=== PATIENT | male | born 1980 | race Caucasian/White ===

== ENCOUNTER 2017-11-02 18:32 | Emergency (ER) | payer SELFPAY | END 2017-11-02 19:39 | disposition left against medical advice (07) | LOC: ER 18:32 | DX: Z53.21 Procedure and treatment not carried out due to patient leaving prior to being seen by health care provider (principal) ==

== ENCOUNTER 2018-10-07 11:50 | Observation (INO) | payer BC ==
[2018-10-07] MEDS ORDERED: ASPIRIN 81 MG TABLET, CHEWABLE PO ONE (11:52)
--- NOTE | 2018-10-07 12:08 | ER Document Report ---
ED General - General Stated Complaint: CHEST PAIN Time Seen by Provider: 10/07/18 11:54 Notes: 37-year-old male presents to the ER complaining some left-sided chest disc omfort. The patient stated it started this morning at breakfast. He described it as a sharp squeezing. It did radiate to his left arm. He denies shortness of breath. Denies diaphoresis denies nausea vomiting. He denies any cough sore throat. Denies black bloody or tarry stool. Rates it as 1/10. States is more uncomfortable. He denies any falls or trauma. Denies any cough. Denies hemopt ysis gland swelling or night sweats. Denies calf pain or swelling. TRAVEL OUTSIDE OF THE [place] IN LAST 30 DAYS: No - Related Data Allergies/Adverse Reactions: No Known Allergies Allergy (Verified 10/07/18 13:24) Past Medical History - Social History Smoking Status: Unknown if Ever Smoked Family History: Other Review of Systems - Review of Systems Constitutional: denies: Chills, Fever Cardiovascular: Chest pain. denies: Edema Respiratory: denies: Cough, Short of breath Neurological/Psychological: denies: Headaches -: Yes All other systems reviewed and negative Physical Exam - Vital signs Vitals: Resp Pulse Ox 18 95 10/07/18 12:11 10/07/18 12:11 - Notes Notes: GENERAL_APPEARANCE: well_nourished, alert, cooperative VITALS: reviewed, see vital signs table. HEAD: no_swelling\tenderness on the head. EYES: PERRL, EOMI, conjunctiva_clear. NOSE: no_nasal_discharge. MOUTH: (-)decreased moisture. THROAT: no_throat_inflammation, no_airway_obstruction. no_lymphadenopathy NECK: supple, no_neck_tenderness, (-)thyromegaly. BACK: no_back_tenderness. CHEST_WALL: no_chest_tenderness. Unable to reproduce pain no crepitus or subcutaneous emphysema noted LUNGS: no_wheezing, no_rales, no_rhonchi, (-)accessory muscle use, good air exchange bilateral. HEART: normal_rate, normal_rhythm, normal_S1, normal_S2, (-)S3, (-)S4, no_murmur, no_rub. ABDOMEN: normal_BS, soft, no_abd_tenderness, (-)guarding, (-)rebound, no_organomegaly, no_abd_masses. EXTREMITIES: good pulses in all_extremities, no_swelling\tenderness in the extremities, no_edema. SKIN: warm, dry, good_color, no_rash. MENTAL_STATUS: speech_clear, oriented_X_3, normal_affect, responds_appropriately to questions. Course - Re-evaluation Re-evalutation: 10/07/18 12:07 The patient presents with chest discomfort. He does have history of hypertension high cholesterol and diabetes. We will do the full workup. 10/07/18 15:13 The patient does have T wave inversion inferior laterally. I have no old EKG to compare to. Patient had a stress test 6 years ago and vaguely remembers there is something abnormal with his EKG but really cannot intelligently tell me. This was out of the area so I have no way to access any records. The patient otherwise is doing well his first troponin is negative. The patient does have hypertension diabetes and high cholesterol he does have a moderate to high gilbert picion story this puts his heart score at 5. Because of this I think it is appropriate to bring him in and rule them out. I spoke with hospice service who is in agreement the patient has had aspirin will place an inch of Nitropaste. I spoke with the patient and he is agreeable. 10/07/18 15:16 D-dimer is negative my suspicion is low for PE. - Vital Signs Vital signs: Temp Pulse Resp BP Pulse Ox 13 143/82 H 99 10/07/18 13:01 10/07/18 13:00 10/07/18 13:25 - Laboratory Result Diagrams: 10/07/18 12:17 10/07/18 12:17 Laboratory results interpreted by me: 10/07/18 12:17 Glucose 288 H Creatine Kinase 49 L - Diagnostic Test Radiology reviewed: Reports reviewed Radiology results interpreted by me: 10/07/18 15:16 Chest X-Ray 10/07/18 11:53 IMPRESSION: NO SIGNIFICANT RADIOGRAPHIC FINDING IN THE CHEST. - EKG Interpretation by Me Rate: Normal Rhythm: NSR When compared to previous EKG there are: Previous EKG unavailable Additional EKG results interpreted by me: 10/07/18 12:09 Patient has T wave inversion inferior laterally. I have no old EKG to compare. Discharge - Discharge Clinical Impression: Chest pain Qualifiers: Chest pain type: unspecified Qualified Code(s): R07.9 - Chest pain, unspecified Condition: Good Disposition: ADMITTED OBSERVATION Admitting Provider: Hospitalist Unit Admitted: Telemetry
--- NOTE | 2018-10-07 12:25 | RADIOLOGY REPORT (SQ) ---
EXAM DESCRIPTION: CHEST SINGLE VIEW COMPLETED DATE/TIME: 10/07/2018 12:15 pm REASON FOR STUDY: BED 18 CP COMPARISON: None. NUMBER OF VIEWS: One view. TECHNIQUE: Single frontal radiographic view of the chest acquired. LIMITATIONS: None. FINDINGS: LUNGS AND PLEURA: No opacities, masses or pneumothorax. No pleural effusion. MEDIASTINUM AND HILAR STRUCTURES: No masses. Contour normal. HEART AND VASCULAR STRUCTURES: Heart normal in size. Normal vasculature. BONES: No acute findings. HARDWARE: None in the chest. OTHER: No other significant finding. IMPRESSION: NO SIGNIFICANT RADIOGRAPHIC FINDING IN THE CHEST. TECHNICAL DOCUMENTATION: JOB ID: [id number]- All Rights Reserved Reading location - IP/workstation name: [email or web address]
[2018-10-07 12:31] LABS: ABSOLUTE EOSINOPHILS # (AUTO) 0.1 10^3/uL (0.0-0.6); ABSOLUTE LYMPHOCYTES (AUTO) 1.4 10^3/uL (0.5-4.7); ABSOLUTE MONOCYTES (AUTO) 0.3 10^3/uL (0.1-1.4); ABSOLUTE NEUT (AUTO) 5.3 10^3/uL (1.7-8.2); BASOPHILS % (AUTO) 0.5 % (0-2); EOSINOPHILS % (AUTO) 1.7 % (0-6); HEMATOCRIT 42.7 % (37.9-51.0); HEMOGLOBIN 15.2 g/dL (13.5-17.0); LYMPHOCYTES % (AUTO) 19.1 % (13-45); MEAN CORPUSCULAR HEMOGLOBIN 31.9 pg (27.0-33.4); MEAN CORPUSCULAR HGB CONC 35.5 g/dL (32.0-36.0); MEAN CORPUSCULAR VOLUME 90 fl (80-97); MONOCYTES % (AUTO) 4.5 % (3-13); PLATELET COUNT 230 10^3/uL (150-450); RED BLOOD COUNT 4.75 10^6/uL (4.35-5.55); RED CELL DISTRIBUTION WIDTH 12.8 % (11.5-14.0); SEGMENTED NEUTROPHILS % (AUTO) 74.2 % (42-78); TOTAL CELLS COUNTED % (AUTO) 100 %; WHITE BLOOD COUNT 7.1 10^3/uL (4.0-10.5)
[2018-10-07 12:47] LABS: ALANINE AMINOTRANSFERASE 26 U/L (21-72); ALBUMIN 3.7 g/dL (3.5-5.0); ALKALINE PHOSPHATASE 65 U/L (38-126); ANION GAP 9 (5-19); ASPARTATE AMINO TRANSFERASE 20 U/L (17-59); BILIRUBIN,DIRECT 0.2 mg/dL (0.0-0.4); BILIRUBIN,TOTAL 0.5 mg/dL (0.2-1.3); BLOOD UREA NITROGEN 13 mg/dL (7-20); CALCIUM 9.2 mg/dL (8.4-10.2); CARBON DIOXIDE 27 mmol/L (22-30); CHLORIDE 104 mmol/L (98-107); CREATINE KINASE 49 U/L (55-170); GLUCOSE 288 mg/dL (75-110); POTASSIUM 4.6 mmol/L (3.6-5.0); SODIUM 139.8 mmol/L (137-145); TOTAL PROTEIN 6.3 g/dL (6.3-8.2)
--- NOTE | 2018-10-07 12:56 | EKG REPORT ---
SEVERITY:- ABNORMAL ECG - SINUS RHYTHM ABNORMAL T, CONSIDER ISCHEMIA, DIFFUSE LEADS : Confirmed by: Carri Aruajo 07-Oct-2018 12:55:36
[2018-10-07 12:59] LABS: CREATINE KINASE MB 0.93 ng/mL (<4.55)
[2018-10-07 13:01] LABS: TROPONIN I < 0.012 ng/mL
[2018-10-07] MEDS ORDERED: NITROGLYCERIN 2% OINTMENT 1 GM PACKET TP ONE (15:17)
--- NOTE | 2018-10-07 17:38 | PDOC H&P ---
History of Present Illness Admission Date/PCP: 10/07/18 15:39 Patient complains of: Chest pain History of Present Illness: ALEJANDRO CRUZ is a 37 year old male history of diabetes, hypertension, who presents with complaint of chest pain. This started. This morning at about 8:30 a.m. when he was eating breakfast. He thought it was indigestion, but chest pain recurred later. This was not with activity. He had some squeezing on the left chest, with radiation to left arm. He had nausea, but no vomiting. Denies diaphoresis, no palpitations. He presented to the ED was concerning for T wave inversion in the inf-lat leads. Initial troponin was negative. Patient was treated with aspirin, nitro, and referred for admission to rule out KS and further workup/management. When I saw him he was chest pain-free. Patient is a former smoker, quit about 3 years ago. He now vapes. Past Medical History Cardiac Medical History: Reports: Hypertension Endocrine Medical History: Reports: Diabetes Mellitus Type 2 Skin Medical History: Reports: Other - Gout Social History Smoking Status: Former Smoker Family History Family History: Other Family History: Significant for anti- of KS; father with diabetes, peripheral vascular disease; mother with hypertension, CAD Parental Family History Reviewed: Yes Children Family History Reviewed: Yes Sibling(s) Family History Reviewed.: Yes Medication/Allergy Home Medications: Colchicine [Colcrys 0.6 mg Tablet] 0.6 mg PO PRN PRN 10/07/18 Lisinopril [Prinivil] 20 mg PO DAILY 10/07/18 Allergies/Adverse Reactions: No Known Allergies Allergy (Verified 10/07/18 13:24) Review of Systems Review of Systems: CONSTITUTIONAL : Fever, chills -- No; unexpalined fatigue -- No EENT: Denies eye, ear, throat, or mouth pain or symptoms. Denies nasal or sinus congestion or discharge. Denies throat, tongue, or mouth swelling or difficulty swallowing. CARDIOVASCULAR: As in HPI RESPIRATORY: Denies cough, no shortness of breath, difficulty breathing. GASTROINTESTINAL: Denies abdominal pain or distention. Denies nausea, vomiting, or diarrhea. No rectal bleeding. GENITOURINARY: Urinary symptoms -- no. MUSCULOSKELETAL: No acute weakness SKIN: Denies rash, lesions or sores. HEMATOLOGIC : Denies easy bruising or bleeding. LYMPHATIC: Denies swollen, enlarged glands. NEUROLOGICAL: New weakness, headaches, slured speach - No PSYCHIATRIC: Changes anxiety or stress, depression, suicidal ideation, or homicidal ideation -- No ALL OTHER SYSTEMS REVIEWED AND NEGATIVE. Physical Exam Vital Signs: Temp Pulse Resp BP Pulse Ox 98.4 F 15 131/69 H 96 10/07/18 16:01 10/07/18 16:01 10/07/18 16:01 10/07/18 16:01 Intake & Output 10/06/18 10/07/18 10/08/18 06:59 06:59 06:59 Weight 117.027 kg GENERAL: Well-developed, well-nourished, no acute distress HEENT: Normocephalic/atraumatic NECK supple, no JVD CARDIOVASCULAR: RRR, normal S1-S2, no appreciable murmur LUNGS: CTA bilaterally ABDOMEN: Soft, NT, NL bowel sounds EXTREMITIES: No edema, clubbing, cyanosis NEUROLOGICAL: Alert, oriented x 3, strength 5/5 throughout, reflexes 2+, CN II through XII intact Results Laboratory Results: 10/07/18 12:17 10/07/18 12:17 10/07/18 10/07/18 12:17 12:17 WBC 7.1 RBC 4.75 Hgb 15.2 Hct 42.7 MCV 90 MCH 31.9 MCHC 35.5 RDW 12.8 Plt Count 230 Seg Neutrophils % 74.2 Lymphocytes % 19.1 Monocytes % 4.5 Eosinophils % 1.7 Basophils % 0.5 Absolute Neutrophils 5.3 Absolute Lymphocytes 1.4 Absolute Monocytes 0.3 Absolute Eosinophils 0.1 Absolute Basophils 0.0 Sodium 139.8 Potassium 4.6 Chloride 104 Carbon Dioxide 27 Anion Gap 9 BUN 13 Creatinine 0.92 Est GFR ( Amer) > 60 Est GFR (Non-Af Amer) > 60 Glucose 288 H Calcium 9.2 Total Bilirubin 0.5 AST 20 ALT 26 Alkaline Phosphatase 65 Total Protein 6.3 Albumin 3.7 10/07/18 10/07/18 10/07/18 12:17 12:17 16:00 Creatine Kinase 49 L CK-MB (CK-2) 0.93 Troponin I < 0.012 < 0.012 Impressions: Chest X-Ray 10/07/18 11:53 IMPRESSION: NO SIGNIFICANT RADIOGRAPHIC FINDING IN THE CHEST. Assessment & Plan - Diagnosis (5) Chest pain Qualifiers: Chest pain type: unspecified Qualified Code(s): R07.9 - Chest pain, unspecified - Plan Summary Plan Summary: Patient being admitted to 24 hours observation. Will treat with nitro, aspirin. We will also treat with O2 as needed. Will rule out KS with serial troponin x3. Stress Cardiolite in a.m. if rules out for KS.
[2018-10-07] MEDS: NITROGLYCERIN 2% OINTMENT 1 GM PACKET TP SCH ×2 (18:25→23:03)
[2018-10-07] MEDS ORDERED: ACETAMINOPHEN 325 MG TABLET PO PRN (18:37)
[2018-10-07] MEDS ORDERED: COLCHICINE 0.6 MG TABLET PO ONE (19:15)
[2018-10-07] MEDS ORDERED: SITAGLIPTIN PHOSPHATE 50 MG TABLET PO ONE (19:15)
[2018-10-07] MEDS ORDERED: DEXTROSE 40% GEL 15 GM TUBE X 2 PO PRN (19:30)
[2018-10-07] MEDS ORDERED: GLUCAGON,HUMAN RECOMB 1 MG INJ IM PRN (19:30)
[2018-10-07] MEDS ORDERED: DEXTROSE 50%-WATER SYRINGE 12.5 GM/25 ML DOSE IV PRN (19:30)
[2018-10-07] MEDS ORDERED: INSULIN LISPRO 100 UNIT/ML 3 ML VIAL SUBCUT PRN (19:30)
[2018-10-07] MEDS ORDERED: DEXTROSE 50%-WATER SYRINGE 25 GM/50 ML DOSE IV PRN (19:30)
[2018-10-07] MEDS ORDERED: DEXTROSE 40% GEL 15 GM TUBE PO PRN (19:30)
[2018-10-07] MEDS ORDERED: METFORMIN HCL 500 MG TABLET PO ONE (20:00)
[2018-10-08] MEDS: NITROGLYCERIN 2% OINTMENT 1 GM PACKET TP SCH ×4 (05:45→17:54)
[2018-10-08 06:02] LABS: HEMATOCRIT 41.3 % (37.9-51.0); HEMOGLOBIN 14.9 g/dL (13.5-17.0); MEAN CORPUSCULAR HEMOGLOBIN 32.2 pg (27.0-33.4); MEAN CORPUSCULAR HGB CONC 36.1 g/dL (32.0-36.0); MEAN CORPUSCULAR VOLUME 89 fl (80-97); PLATELET COUNT 213 10^3/uL (150-450); RED BLOOD COUNT 4.63 10^6/uL (4.35-5.55); WHITE BLOOD COUNT 7.6 10^3/uL (4.0-10.5)
[2018-10-08 06:31] LABS: ANION GAP 8 (5-19); BLOOD UREA NITROGEN 15 mg/dL (7-20); CALCIUM 9.4 mg/dL (8.4-10.2); CARBON DIOXIDE 27 mmol/L (22-30); CHLORIDE 103 mmol/L (98-107); GLUCOSE 251 mg/dL (75-110); POTASSIUM 4.1 mmol/L (3.6-5.0)
[2018-10-08] MEDS: ENOXAPARIN SODIUM INJ 40 MG/0.4 ML DISP.SYRIN SUBCUT SCH (09:53)
[2018-10-08] MEDS: ASPIRIN 81 MG TABLET, ENT COATED PO SCH (09:53)
[2018-10-08] MEDS: COLCHICINE 0.6 MG TABLET PO SCH ×2 (09:53→17:30)
[2018-10-08] MEDS: METFORMIN HCL 500 MG TABLET PO SCH ×2 (09:53→17:30)
[2018-10-08] MEDS: SITAGLIPTIN PHOSPHATE 50 MG TABLET PO SCH ×2 (09:54→17:30)
[2018-10-08] MEDS: LISINOPRIL 10 MG TABLET PO SCH (09:54)
--- NOTE | 2018-10-08 10:39 | PDOC PROGRESS REPORT ---
Subjective Progress Note for:: 10/08/18 Subjective:: No complaint, no recurrent chest pain at this time. No fever or chills, no nausea or vomiting, no palpitations. Denies shortness of breath. Admits to poor compliance to his diabetes medications, states when he takes them his blood sugar usually run in the 120s. He has been stressed working as a contractor. States he will resume adhering to this. He does not want to go on insulin at this time. Reason For Visit: CHEST PAIN Physical Exam Vital Signs: Temp Pulse Resp BP Pulse Ox 97.8 F 77 16 125/69 94 10/08/18 03:47 10/08/18 07:00 10/08/18 03:47 10/08/18 03:47 10/08/18 03:47 Intake & Output 10/07/18 10/08/18 10/09/18 06:59 06:59 06:59 Intake Total 500 Balance 500 Weight 119 kg GENERAL: Well-developed, no acute distress HEENT: Normocephalic/atraumatic NECK supple, no JVD CARDIOVASCULAR: RRR, normal S1-S2 LUNGS: CTA bilaterally ABDOMEN: Soft, NT, NL bowel sounds EXTREMITIES: No edema, clubbing, cyanosis NEUROLOGICAL: Alert, oriented x 3, nonfocal Results Laboratory Results: 10/08/18 04:38 10/08/18 04:38 10/07/18 10/07/18 10/08/18 12:17 12:17 04:38 WBC 7.1 7.6 RBC 4.75 4.63 Hgb 15.2 14.9 Hct 42.7 41.3 MCV 90 89 MCH 31.9 32.2 MCHC 35.5 36.1 H RDW 12.8 13.0 Plt Count 230 213 Seg Neutrophils % 74.2 Lymphocytes % 19.1 Monocytes % 4.5 Eosinophils % 1.7 Basophils % 0.5 Absolute Neutrophils 5.3 Absolute Lymphocytes 1.4 Absolute Monocytes 0.3 Absolute Eosinophils 0.1 Absolute Basophils 0.0 Sodium 139.8 Potassium 4.6 Chloride 104 Carbon Dioxide 27 Anion Gap 9 BUN 13 Creatinine 0.92 Est GFR ( Amer) > 60 Est GFR (Non-Af Amer) > 60 Glucose 288 H Calcium 9.2 Total Bilirubin 0.5 AST 20 ALT 26 Alkaline Phosphatase 65 Total Protein 6.3 Albumin 3.7 10/08/18 04:38 WBC RBC Hgb Hct MCV MCH MCHC RDW Plt Count Seg Neutrophils % Lymphocytes % Monocytes % Eosinophils % Basophils % Absolute Neutrophils Absolute Lymphocytes Absolute Monocytes Absolute Eosinophils Absolute Basophils Sodium 138.0 Potassium 4.1 Chloride 103 Carbon Dioxide 27 Anion Gap 8 BUN 15 Creatinine 0.86 Est GFR ( Amer) > 60 Est GFR (Non-Af Amer) > 60 Glucose 251 H Calcium 9.4 Total Bilirubin AST ALT Alkaline Phosphatase Total Protein Albumin 10/07/18 10/07/18 10/07/18 12:17 12:17 16:00 Creatine Kinase 49 L CK-MB (CK-2) 0.93 Troponin I < 0.012 < 0.012 10/08/18 06:27 Creatine Kinase CK-MB (CK-2) Troponin I < 0.012 Impressions: Chest X-Ray 10/07/18 11:53 IMPRESSION: NO SIGNIFICANT RADIOGRAPHIC FINDING IN THE CHEST. Assessment & Plan - Diagnosis (1) Chest pain Qualifiers: Chest pain type: unspecified Qualified Code(s): R07.9 - Chest pain, unspecified Is this a current diagnosis for this admission?: Yes (2) Diabetes mellitus type 2 in obese Is this a current diagnosis for this admission?: Yes (3) Hypertension Is this a current diagnosis for this admission?: Yes (4) Former light tobacco smoker Is this a current diagnosis for this admission?: Yes (5) Smokeless tobacco use Is this a current diagnosis for this admission?: Yes - Plan Summary Plan Summary: Patient medically stable. Continue to trend troponin. He is awaiting stress Cardiolite to evaluate for reversible ischemia. Continue medical management for now, including aspirin, nitro as needed. Counseled on compliance with his medications, including for diabetes. Will check hemoglobin A1c.
[2018-10-09] MEDS: NITROGLYCERIN 2% OINTMENT 1 GM PACKET TP SCH ×3 (00:38→11:22)
[2018-10-09] MEDS: METFORMIN HCL 500 MG TABLET PO SCH (11:21)
[2018-10-09] MEDS: COLCHICINE 0.6 MG TABLET PO SCH (11:21)
[2018-10-09] MEDS: SITAGLIPTIN PHOSPHATE 50 MG TABLET PO SCH (11:21)
[2018-10-09] MEDS: ASPIRIN 81 MG TABLET, ENT COATED PO SCH (11:21)
[2018-10-09] MEDS: ENOXAPARIN SODIUM INJ 40 MG/0.4 ML DISP.SYRIN SUBCUT SCH (11:22)
[2018-10-09] MEDS: LISINOPRIL 10 MG TABLET PO SCH (11:27)
[2018-10-09 13:48] VITALS: BP 143/90
--- NOTE | 2018-10-09 14:03 | PDOC DISCHARGE SUMMARY ---
General - Admit/Disc Date/PCP Admission Date/Primary Care Provider: 10/07/18 15:39 SAMEER WORRELL PA-C Discharge Date: 10/09/18 - Discharge Diagnosis (1) Chest pain Is this a current diagnosis for this admission?: Yes (2) Diabetes mellitus type 2 in obese Is this a current diagnosis for this admission?: Yes (3) Hypertension Is this a current diagnosis for this admission?: Yes (4) Former light tobacco smoker Is this a current diagnosis for this admission?: Yes (5) Smokeless tobacco use Is this a current diagnosis for this admission?: Yes - Additional Information Discharge Diet: As Tolerated, Cardiac, Diabetic Discharge Activity: Activity As Tolerated Prescriptions: Metoprolol Succinate [Toprol Xl 25 mg Tab.sr] 25 mg PO DAILY #30 tab.sr.24h Home Medications: Colchicine [Colcrys 0.6 mg Tablet] 0.6 mg PO PRN PRN 10/07/18 Lisinopril [Prinivil] 20 mg PO DAILY 10/07/18 Sitagliptin Phos/Metformin HCl [Janumet 50-1,000 mg Tablet] 1 each PO BID 10/07/18 Metoprolol Succinate [Toprol Xl 25 mg Tab.sr] 25 mg PO DAILY #30 tab.sr.24h 10/09/18 History of Present Illness History of Present Illness: Patient was admitted after presentation as in HPI below: "ALEJANDRO CRUZ is a 37 year old male history of diabetes, hypertension, who presents with complaint of chest pain. This started. This morning at about 8:30 a.m. when he was eating breakfast. He thought it was indigestion, but chest pain recurred later. This was not with activity. He had some squeezing on the left chest, with radiation to left arm. He had nausea, but no vomiting. Denies diaphoresis, no palpitations. He presented to the ED was concerning for T wave inversion in the inf-lat leads. Initial troponin was negative. Patient was treated with aspirin, nitro, and referred for admission to rule out PR and further workup/management. When I saw him he was chest pain-free. Patient is a former smoker, quit about 3 years ago. He now vapes." Hospital Course Hospital Course: Patient was admitted and managed as follows: (1) Chest pain Qualifiers: Chest pain type: unspecified Qualified Code(s): R07.9 - Chest pain, unspecified Is this a current diagnosis for this admission?: Yes Treated with ASA, nitro, oxygen as needed. He rulled out for PR with troponins x 3 He had stress cardiolyted done negative for reversible ishemia. He had hypertensive response to stress test and B-memo (Metoprolol ER 25mg daily) has been added to his medications (2) Diabetes mellitus type 2 in obese Is this a current diagnosis for this admission?: Yes Reports noncompliance to meds recently due to being busy. Hgb A1c check and it was 7. Advise compliance with meds and diet. (3) Hypertension Is this a current diagnosis for this admission?: Yes Resume patricia meds + new low dose b-memo (4) Former light tobacco smoker Is this a current diagnosis for this admission?: Yes Congratulated on quitting (5) Smokeless tobacco use Is this a current diagnosis for this admission?: Yes Counseled on quitting this as well as dangers not yet well known F/u with pcp in one week. Physical Exam Vital Signs: Temp Pulse Resp BP Pulse Ox 98.2 F 94 17 143/90 H 98 10/09/18 13:45 10/09/18 13:45 10/09/18 13:45 10/09/18 13:45 10/09/18 13:45 Intake & Output 10/08/18 10/09/18 10/10/18 06:59 06:59 06:59 Intake Total 500 892 Balance 500 892 Weight 119 kg 119 kg GENERAL: Well-developed, no acute distress HEENT: Normocephalic/atraumatic NECK supple, no JVD CARDIOVASCULAR: RRR, normal S1-S2 LUNGS: CTA bilaterally ABDOMEN: Soft, NT, NL bowel sounds EXTREMITIES: No edema, clubbing, cyanosis NEUROLOGICAL: Alert, oriented x 3, nonfocal Results Laboratory Results: 10/08/18 04:38 10/08/18 04:38 10/07/18 10/07/18 10/07/18 12:17 12:17 16:00 Creatine Kinase 49 L CK-MB (CK-2) 0.93 Troponin I < 0.012 < 0.012 10/08/18 06:27 Creatine Kinase CK-MB (CK-2) Troponin I < 0.012 Impressions: Chest X-Ray 10/07/18 11:53 IMPRESSION: NO SIGNIFICANT RADIOGRAPHIC FINDING IN THE CHEST. Qualifiers - * PATIENT BEING DISCHARGED WITH ANY OF THE FOLLOWING DIAGNOSIS: No
--- NOTE | 2018-10-09 15:08 | DRAGON STRESS TEST REPORT ---
Exercise EKG treadmill Cardiolite stress test using SPECT. Data procedure: 10/09/2018. Ordering Physician: Dr. Sue. Patient Status: Inpatient Indication:: Chest pain coronary risk factors:. Diabetes mellitus, hypertension, and family history of coronary artery disease. Significant physical findings prior to stress testing show a blood pressure of 137/89, and a heart rate of 88 beats per minute, with no ectopics. Auscultation of the heart shows normal S1 and S2. No S3 or S4 gallops. Systolic murmur in the left sternal border and apex. Lungs are clear to auscultation and percussion. Resting 12-lead EKG:. Sinus Rhythm. T wave inversion in the anterior and inferior leads. Procedure: The patient was excised on a standard Terrell protocol. . The patient walked a total of 10 minutes and 03 seconds on this protocol and reached a peak heart rate of 166 beats per minute, which is 91% of maximum predicted heart rate for age. This is at an excellent workload of 13.40 METS. The test was stopped because of achievement of target heart rate. The patient described no symptoms of chest pain/discomfort. Exercise EKG's show: No ST changes of exercise-induced myocardial ischemia. Arrhythmias seen: None. The blood pressure response was hypertensive at peak exercise the blood pressure was 212/99 millimeters of Hg. The double product was 35.1 K. Summary of findings and interpretation: 1. No chest pain or chest discomfort symptoms reproduced. 2. No EKG evidence of ischemia in the form of ST segment depression. 3. Hypertensive blood pressure response. 4. No arrhythmias seen. 5. Excellent exercise tolerance, excellent aerobic capacity. Diagnostic treadmill stress test negative for ischemia by EKG criteria. Recommendations: Correlate with nuclear Cardiolite images. Nuclear data: At rest the patient was given 13.36 millicuries of technetium 99 sestamibi, and as per protocol rest none gated SPECT images were obtained. The patient was exercised on a treadmill [see exercise physiology]. One minute prior to termination of exercise, 46.6 millicuries of technetium and there sestamibi was injected intravenously. As per protocol stress gated images were obtained. Impression: Review of images show that there is a perfusion defect involving the basal inferior wall, which is more pronounced in the resting images compared to the stress images. This area has normal motion contraction and thickening hence this is a soft tissue attenuation artifact. Rest of the segments of the myocardium had normal perfusion at rest, and normal perfusion post exercise. All segments of the myocardium had normal motion, contraction, and thickening by gated study. T. I D. ratio was[ ]. The computer read rest and stress left ventricular ejection fractions were 57 %, and 53 % respectively. Visually both the ejection fractions were normal in excess of 55%. Conclusions: 1. No clinical symptoms of exercise-induced myocardial ischemia at a peak heart rate of 166 beats per minute, patient having achieved 91 % of maximum predicted heart rate for age, at an excellent workload of 13.40 METS. 2. No EKG evidence of exercise-induced myocardial ischemia. 3. No arrhythmias seen. 4. Hypertensive blood pressure response. 5.No scintigraphic evidence of exercise-induced myocardial ischemia. 6.No scintigraphic evidence of myocardial infarction/scar. 7. Soft tissue attenuation artifact involving the basal inferior wall. Recommendations Aggressive coronary risk factor modification, and treatment of underlying comorbidities, including optimal control of the patient's blood pressure, preferably with beta-blockers if no contraindication. MTDD
== END 2018-10-09 14:12 | disposition home or self-care (01) ==
LOC: ER 11:50 → EH 15:39 → 4N 17:00
PROVIDERS: ADMIT Internal Medicine; ATTEND Internal Medicine
DX: R07.9 Chest pain, unspecified (principal); E11.9 Type 2 diabetes mellitus without complications; E66.9 Obesity, unspecified; I10 Essential (primary) hypertension; F17.290 Nicotine dependence, other tobacco product, uncomplicated; R11.0 Nausea; R94.31 Abnormal electrocardiogram [ECG] [EKG]; Z79.84 Long term (current) use of oral hypoglycemic drugs; Z79.899 Other long term (current) drug therapy; Z91.14 Patient's other noncompliance with medication regimen; Z82.49 Family history of ischemic heart disease and other diseases of the circulatory system; Z56.6 Other physical and mental strain related to work; Z68.32 Body mass index [BMI] 32.0-32.9, adult; Z23 Encounter for immunization
CPT/HCPCS: 93005; 99285; 36415 ×3; 82553; 82962 ×3; 82550; 85025; 85027; 80048; 80053; 84484 ×2; 83036 ×2; 85379; 93017; 71045; 78452; 90686; 93010; G0378 ×4; G0008; A9500; J3490; Q9969; 90471